=== PATIENT | female | born 1985 | race African-American/Black ===

== ENCOUNTER 2021-09-24 09:23 | Outpatient (CLI) | payer BC, SELFPAY ==
[2021-09-24 10:14] LABS: Basophils Percent Auto 0.4 % (0.2-1.2); Eosinophils Absolute Auto 0.1 K/mm3 (0-0.3); Eosinophils Percent Auto 1.3 % (0-4.4); Hematocrit 34.3 % (37.0-47.0); Hemoglobin 11.1 g/dL (12.0-15.0); Immature Granulocyte Absolute 0.02 K/mm3 (0.00-0.031); Immature Granulocyte Percent A 0.4 % (0-0.5); Lymphocytes Absolute Auto 1.49 K/mm3 (0.9-3.2); Lymphocytes Percent Auto 27.8 % (18.3-44.2); Mean Corpuscular HGB Conc 32.4 g/dl (32-36); Mean Corpuscular Hemoglobin 26.5 pg (26-34); Mean Corpuscular Volume 81.9 fl (80-100); Mean Platelet Volume 10.9 fl (7.4-10.4); Monocytes Absolute Auto 0.3 K/mm3 (0.1-0.6); Monocytes Percent Auto 5.6 % (2.6-8.5); Neutrophils Absolute Auto 3.5 K/mm3 (1.3-6.7); Neutrophils Percent Auto 64.5 % (45.5-73.1); Platelet Count Result 264 k/mm3 (150-375); Red Blood Count 4.19 M/mm3 (4.2-5.4); Red Cell Distribution Width 15.3 % (11.5-14.5); White Blood Count 5.4 K/mm3 (4.5-10.0)
[2021-09-24 10:57] LABS: Hepatitis B Surface Antigen Negative (Negative); Rubella IgG Antibody 20.8 IU/ML
[2021-09-24 11:04] LABS: HIV 1/2 Ab P24 Ag Result Negative (Negative)
[2021-09-24 11:30] LABS: Glucose 1 Hour PP 50gm Dose 138 mg/dL
[2021-09-25 09:05] LABS: Rapid Plasma Reagin Non-Reactive (NonReactive)
[2021-09-26 14:34] LABS: CMV IgG Antibody >10.00 U/mL (<0.60)
== END 2021-09-24 09:24 | disposition home or self-care (01) ==
PROVIDERS: Visit Provider Obstetrics & Gynecology
DX: N94.89 Other specified conditions associated with female genital organs and menstrual cycle (principal)
CPT/HCPCS: 36415; 82947; 84702; 85025; 86592; 86644; 86703; 86747; 86762; 86787; 86850; 87086; 87088; 87340; G0432

== ENCOUNTER 2021-10-03 07:22 | Outpatient (CLI) | payer BC, SELFPAY ==
[2021-10-03 08:21] LABS: Glucose Fasting Gestational 83 mg/dL (>/=95)
[2021-10-03 10:03] LABS: Glucose 1 Hour Gest 134 mg/dL (>/=180)
[2021-10-03 10:55] LABS: Glucose 2 Hour Gest 101 mg/dL (>/= 155)
[2021-10-03 12:20] LABS: Glucose 3 Hour Gest 98 mg/dL (>/=140)
== END 2021-10-03 07:23 | disposition home or self-care (01) ==
LOC: ANHLAB 07:23
PROVIDERS: Visit Provider Obstetrics & Gynecology
DX: O99.810 Abnormal glucose complicating pregnancy (principal); Z3A.00 Weeks of gestation of pregnancy not specified
CPT/HCPCS: 36415; 82951; 82952

== ENCOUNTER 2021-12-03 09:02 | Outpatient (CLI) | payer BC, SELFPAY | END 2021-12-03 09:03 | disposition home or self-care (01) | LOC: ANHLAB 09:04 | PROVIDERS: Visit Provider Obstetrics & Gynecology | DX: N94.89 Other specified conditions associated with female genital organs and menstrual cycle (principal) | CPT/HCPCS: 36415; 86900; 86901 ==

== ENCOUNTER 2022-02-06 13:10 | Outpatient (CLI) | payer BC, SELFPAY ==
[2022-02-06 15:09] LABS: Hematocrit 26.5 % (37.0-47.0); Hemoglobin 8.6 g/dL (12.0-15.0); Mean Corpuscular HGB Conc 32.5 g/dl (32-36); Mean Corpuscular Volume 80.1 fl (80-100); Mean Platelet Volume 9.9 fl (7.4-10.4); Platelet Count Result 220 k/mm3 (150-375); Red Blood Count 3.31 M/mm3 (4.2-5.4); Red Cell Distribution Width 14.6 % (11.5-14.5); White Blood Count 8.8 K/mm3 (4.5-10.0)
[2022-02-06 15:25] LABS: Glucose 1 Hour PP 50gm Dose 132 mg/dL
[2022-02-06 16:03] LABS: HIV 1/2 Ab P24 Ag Result Negative (Negative)
== END 2022-02-06 13:11 | disposition home or self-care (01) ==
LOC: ANHLAB 13:12
PROVIDERS: Visit Provider Student in an Organized Health Care Education/Training Program
DX: N94.89 Other specified conditions associated with female genital organs and menstrual cycle (principal)
CPT/HCPCS: 36415; 82947; 85027; 86703; G0432

== ENCOUNTER 2022-02-14 07:24 | Outpatient (CLI) | payer BC, SELFPAY ==
[2022-02-14 07:58] LABS: Glucose Fasting Gestational 94 mg/dL (>/=95)
[2022-02-14 09:55] LABS: Glucose 1 Hour Gest 131 mg/dL (>/=180)
[2022-02-14 10:45] LABS: Glucose 2 Hour Gest 108 mg/dL (>/= 155)
[2022-02-14 11:36] LABS: Glucose 3 Hour Gest 81 mg/dL (>/=140)
== END 2022-02-14 07:25 | disposition home or self-care (01) ==
LOC: ANHLAB 07:25
PROVIDERS: Visit Provider Student in an Organized Health Care Education/Training Program
DX: R73.09 Other abnormal glucose (principal)
CPT/HCPCS: 36415; 82951; 82952

== ENCOUNTER 2022-04-24 05:03 | Inpatient (IN) | payer BC, SELFPAY ==
[2022-04-24] VITALS (73 sets, daily range): BP systolic 92–137; BP diastolic 61–117; PULSE 64–101; RESP 16–19; TEMP 36.4–37.3; O2SAT 97–100; BMI 36.5
[2022-04-24 05:35] LABS: Basophils Percent Auto 0.3 % (0.2-1.2); Eosinophils Absolute Auto 0.1 K/mm3 (0-0.3); Eosinophils Percent Auto 1.1 % (0-4.4); Hematocrit 31.2 % (37.0-47.0); Hemoglobin 10.3 g/dL (12.0-15.0); Immature Granulocyte Absolute 0.02 K/mm3 (0.00-0.031); Immature Granulocyte Percent A 0.3 % (0-0.5); Lymphocytes Absolute Auto 1.76 K/mm3 (0.9-3.2); Lymphocytes Percent Auto 23.5 % (18.3-44.2); Mean Corpuscular Hemoglobin 25.4 pg (26-34); Mean Platelet Volume 10.3 fl (7.4-10.4); Monocytes Absolute Auto 0.5 K/mm3 (0.1-0.6); Monocytes Percent Auto 6.4 % (2.6-8.5); Neutrophils Absolute Auto 5.1 K/mm3 (1.3-6.7); Neutrophils Percent Auto 68.4 % (45.5-73.1); Platelet Count Result 212 k/mm3 (150-375); Red Blood Count 4.05 M/mm3 (4.2-5.4); Red Cell Distribution Width 17.5 % (11.5-14.5); White Blood Count 7.5 K/mm3 (4.5-10.0)
--- NOTE | 2022-04-24 05:35 | LDADM ---
This patient, Betsy Flaherty, was admitted to Labor/Delivery/Recovery 120 on 04/24/22 at 05:03. Plans for labor, pain management and were discussed with patient. Patient/family oriented to hospital policies and general routines including ID bracelet, bed and alarms, visiting hours, pain management, procedures, bathroom and other care routines, personal items, smoking policy, room service/diet and guest tray routines, infant security routines, and visiting hours. Patient/Family are encouraged to report perceived risks to care and to ask questions if they do not understand what they are told or what they should do. See OBIX for further documentation.
[2022-04-24] MEDS: LACTATED RINGERS 1,000 ML 125 ML IV CONT ×2 (07:02→07:45)
--- NOTE | 2022-04-24 07:12 | WPDANESEPPF ---
Anes - Initial Pre Proc Eval Procedure: Operation Date: 04/24/22 07:30 Proposed Procedures p Repeat Section with Bilateral Tubal Ligation - Tyrone Bernstein MD Date/Time: 04/24/22 07:12 Surgeon: Tyrone Bernstein MD Pre Op Diagnosis: R c/s Patient Data Age: 37 Gender: F Height: 1.65 m Weight: 99.5 kg Last Vital Signs Pulse 93 04/24/22 05:46 BP 114/83 04/24/22 05:46 O2 Del Method Room Air 04/24/22 05:34 Allergies Allergy/AdvReac Type Severity Reaction Status Date / Time ampicillin Allergy Mild Unknown Verified 04/18/22 09:24 Penicillins Allergy Mild Unknown Verified 04/18/22 09:24 Phenothiazines AdvReac Severe Anaphylactic Verified 04/18/22 09:24 Shock Home Medications Medication Instructions Recorded Confirmed Type acetaminophen 500 mg tablet 500 mg PO Q6H PRN Pain, Mild 10/30/21 04/24/22 History (Tylenol Extra Strength) aspirin 81 mg tablet,delayed 81 mg PO DAILY 10/30/21 04/24/22 History release (Adult Low Dose Aspirin) vitamins-iron fumarate 65 1 tablet PO DAILY 10/30/21 04/24/22 History mg iron-folic acid 1 mg tablet docusate sodium 100 mg capsule 100 mg PO DAILY #30 caps 02/11/22 04/24/22 Rx (Colace) ferrous sulfate 325 mg (65 mg 325 mg PO BID #60 tabs 02/11/22 04/24/22 Rx iron) tablet (FeroSul) Laboratory Tests 04/24/22 04/24/22 04/24/22 05:26 05:26 05:26 WBC 7.5 K/mm3 K/mm3 (4.5-10.0) RBC 4.05 M/mm3 L M/mm3 (4.2-5.4) Hgb 10.3 g/dL L g/dL (12.0-15.0) Hct 31.2 % L % (37.0-47.0) MCV 77.0 fl L fl (80-100) MCH 25.4 pg L pg (26-34) MCHC 33.0 g/dl g/dl (32-36) RDW 17.5 % H % (11.5-14.5) Plt Count 212 k/mm3 k/mm3 (150-375) MPV 10.3 fl fl (7.4-10.4) Immature Gran % (Auto) 0.3 % % (0-0.5) Neut % (Auto) 68.4 % % (45.5-73.1) Lymph % (Auto) 23.5 % % (18.3-44.2) [place] % (Auto) 6.4 % % (2.6-8.5) Eos % (Auto) 1.1 % % (0-4.4) Baso % (Auto) 0.3 % % (0.2-1.2) Lymph # (Auto) 1.76 K/mm3 K/mm3 (0.9-3.2) [place] # (Auto) 0.5 K/mm3 K/mm3 (0.1-0.6) Eos # (Auto) 0.1 K/mm3 K/mm3 (0-0.3) Baso # (Auto) 0.0 K/mm3 K/mm3 (0.0-0.1) Abs Immat Gran (auto) 0.02 K/mm3 K/mm3 (0.00-0.031) Absolute Neuts (auto) 5.1 K/mm3 K/mm3 (1.3-6.7) Absolute Nucleated RBC 0.0 K/mm3 K/mm3 (0.0-0.012) Nucleated RBC % 0.0 % % (0.0-0.2) RPR Pending Blood Type A Positive Antibody Screen Pending Patient hx anesthesia problems: none Family hx anesthesia problems: none Results Review: All pre-operative results and documents have been reviewed as part of the pre-operative evaluation. [facility] Past Medical History Medical History Abnormal glucose tolerance in Blood glucose abnormal Suppression of menstruation Surgical History Surgical History Delivery by section (10/10/04) primary c/s unfavorable cervix, nonreassuring status Delivery by section (11/04/05) rpt c/s History of gynecological procedure (01/04/06) iud insertion History of hysteroscopy (05/08/16) Hscope removal of Foreign body retained IUD History of hysteroscopy (11/20/10) hysteroscopic intrauterine device removal , insertion of mirena IUD Social History Social History Smoking status: Never smoker Second hand tobacco smoke exposure: No Alcohol intake: never Substance use: never Substance use type: does not use Lack of Transportation: No Lack of Food: Never True Current Housing: I Have Housing Concerned About Future Housing: No Difficulty Paying Gas/Electric Bills: No Di
--- NOTE | 2022-04-24 07:29 | WPDHPUPDATE1 ---
History and Physical Update Update Date/Time: 04/24/22 07:29 History and Physical has been reviewed, including an updated exam of the patient. There are NO changes in the patient's condition. Risks, benefits, and alternatives have been discussed and questions answered. Patient agrees to proceed with procedure.
[2022-04-24] MEDS: ceFAZolin 2 GM/D5W 50 ML 2 GM/50 ML BAG IVPB (07:48)
--- NOTE | 2022-04-24 09:16 | PM.OBPRVD ---
OB - Delivery Note Procedure Procedure: Procedures Operation Date: 04/24/22 07:30 <No data on this case meets the specified criteria> Events: Previous Delivery Delivery monitor: External FHT and External Uterine Route of delivery: Specimen: Yes (Tubes x2) Quantitative Blood Loss (ml): 855 Anesthesia type: Spinal Disposition: Floor Complications: None Narrative: Patient prepped draped usual manner for this procedure. Prior scar was removed on entry into the abdominal cavity. Fascia was extended bilaterally the length of the skin incision and superiorly and inferiorly dissected away from the rectus muscles. Peritoneum was entered without difficulty and bladder flap was developed. Uterus was scored with light meconium-stained fluid noted vertex was delivered followed by the rest the baby without difficulty. Cord clamped cut and the placenta was manually removed. Uterus was exteriorized and cleared of membranes and clots and closed using 0 Monocryl in a running interlocking manner with good approximation and hemostasis noted. Bilaterally the fallopian tube was then grasped with Buford clamps and segments were removed by doubly tying mesial salpinx and removing the section of tube. The stumps were hemostatic and the uterus was turned to the abdomen. Stumps were again noted to be hemostatic and intact and the fascia was approximated using 0 Vicryl from the left angle to the midline and the right angle to midline with good approximation hemostasis noted. Subcutaneous tissue was approximated 0 plain suture and rina were used to approximate the skin edges. Patient tolerated the procedure well and was sent to recovery room in stable condition. Baby Weeks of gestation at delivery: 39 gender: Female Weight (pounds): 8 Weight (ounces): 1 presentation: vertex Placenta delivery description: Manual Removal Cord Vessel Description: 3 Vessels score one minute: 9 score five minutes: 9 AMG Delivery Billing Delivery Delivery: Delivery Charge
[2022-04-24] MEDS: MORPHINE SULFATE INJ (*CRX) 10 MG/ML AMP 3 MG IV PUSH (10:05)
[2022-04-24] MEDS: LIDOCAINE 5% PATCH 1 PATCH TRANSDERM (10:06)
[2022-04-24] MEDS: OXYTOCIN 30 UNITS/NS 500 ML 30 UNITS/500 ML BAG 125 UNITS IV CONT (11:15)
[2022-04-24] MEDS: HYDROcodone/acetaminophen (*CRX) 5-325 MG TABLET 1 TAB PO ×2 (11:51→16:42)
[2022-04-24] MEDS: IBUPROFEN 600 MG TABLET PO (11:51)
--- NOTE | 2022-04-24 12:21 | PC.NURSE ---
1128-Patient transferred to post room #285 via stretcher. Support person present. Oriented to unit, room, information board, rooming in, admission packet and security measures. Patient verbalizes understanding.
--- NOTE | 2022-04-24 14:04 | PC.NURSE ---
[id number] Introductions were made, then consulted with patient to assess needs related to . Mother led the conversation with her?plans to feed?her infant and the?experience so far. Mother states this will be the first baby she breast feeds. Mother states she prefers to breastfeed, however; is unsure since she hasn't done it before. Resources provided for inpatient and outpatient services with the feeding sheet, mom/baby guide, business card and name written on the white board. Mother was encouraged to place skin to skin and stimulate with massage touch when infant returns to her. Reviewed what to expect the 1st 24 hours and how we assess needs of infant requiring supplementation. Mother voiced understanding of information and will call if there is a request for assistance. Reported to the primary RN.
--- NOTE | 2022-04-24 15:28 | PC.NURSE ---
[id number] Consulted with patient to assess needs related to . is skin to skin and mother is attempting to latch . Mother works well with her infant. Reviewed working with infant, supporting breast and how to protect the nipples with an optimal deep latch, good positioning, and good hand washing. Encouraged understanding the benefits of skin to skin, responding to feeding cues, frequencies of feeding 8-12 times in 24 hours (approximately 2-3 hours), hand expression, duration of feedings, milk production, intake/output feeding sheet and signs of adequate intake encouraging swallowing at the breast. Reviewed positioning and alignment, supporting breast, off-centered (asymmetrical latch) and leading with the chin with big, open, wide gape. Infant latched optimally to the right breast in football position for 5 minutes. Education given to mother of how to visualize suck/swallow ratios and listen for drinking at the breast while latched effectively breast feeding. Mother adjusted her support hand and changed the position of her arms and became unlatched. Infant was placed upright skin to skin with mother and burped. started demonstrating seeking the breast with feeding cues and mother assisted to the breast with RN helping to the left breast using cross cradle laid-back positioning. was able to maintain latch without discomfort to mother. Education given to mother of how to visualize suck/swallow ratios, listen for drinking at the breast and swallowing was visualized. Nipple care reviewed with optimal latch, good positioning and using clean hands when feeding her and touching her breast. Reviewed what to expect the 1st 24 hours of life. Resources used to facilitate learning were used from the visual handout, tool, mom and baby guide. Reviewed early feeding cues and the importance of skin to skin. Mother voiced understanding of the education shared, to call for assistance if the infant does not latch or if there is discomfort with . Reported to the primary RN.
[2022-04-24 15:56] LABS: Rapid Plasma Reagin Non-Reactive (NonReactive)
[2022-04-24] MEDS: DEXTROSE 5%/0.45% SOD CHL 1,000 ML 125 ML IV CONT (16:42)
[2022-04-24] MEDS: DOCUSATE SODIUM 100 MG CAPSULE PO (16:42)
[2022-04-25] VITALS (13 sets, daily range): BP systolic 91–125; BP diastolic 55–84; PULSE 56–100; RESP 16–18; TEMP 36.3–37; O2SAT 97–100
[2022-04-25] MEDS: IBUPROFEN 600 MG TABLET PO ×3 (03:24→20:00)
[2022-04-25] MEDS: HYDROcodone/acetaminophen (*CRX) 5-325 MG TABLET 1 TAB PO ×3 (03:24→20:01)
[2022-04-25 07:37] LABS: Basophils Percent Auto 0.2 % (0.2-1.2); Eosinophils Absolute Auto 0.1 K/mm3 (0-0.3); Eosinophils Percent Auto 0.6 % (0-4.4); Immature Granulocyte Absolute 0.04 K/mm3 (0.00-0.031); Immature Granulocyte Percent A 0.4 % (0-0.5); Lymphocytes Absolute Auto 1.99 K/mm3 (0.9-3.2); Lymphocytes Percent Auto 20.6 % (18.3-44.2); Mean Corpuscular HGB Conc 32.5 g/dl (32-36); Mean Corpuscular Hemoglobin 26.2 pg (26-34); Mean Corpuscular Volume 80.5 fl (80-100); Mean Platelet Volume 10.2 fl (7.4-10.4); Monocytes Absolute Auto 0.6 K/mm3 (0.1-0.6); Monocytes Percent Auto 6.1 % (2.6-8.5); Neutrophils Percent Auto 72.1 % (45.5-73.1); Platelet Count Result 193 k/mm3 (150-375); Red Blood Count 2.56 M/mm3 (4.2-5.4); Red Cell Distribution Width 17.7 % (11.5-14.5); White Blood Count 9.7 K/mm3 (4.5-10.0)
[2022-04-25 07:39] LABS: Hematocrit 20.6 % (37.0-47.0)
[2022-04-25 07:40] LABS: Hemoglobin 6.7 g/dL (12.0-15.0)
[2022-04-25] MEDS: POLYSACCHARIDE IRON COMPLEX 150 MG CAPSULE PO ×2 (08:05→19:59)
[2022-04-25] MEDS: MULTIVIT/MIN/PREN/FOL AC/IRON TABLET 1 TAB PO (08:05)
[2022-04-25] MEDS: DOCUSATE SODIUM 100 MG CAPSULE PO ×2 (08:05→20:00)
[2022-04-25] MEDS: SIMETHICONE 80 MG TAB.CHEW PO ×2 (09:48→20:00)
[2022-04-25] MEDS: SODIUM CHLORIDE 0.9% IV 250 ML 30 ML IV CONT (10:46)
--- NOTE | 2022-04-25 12:26 | P.PNOB_ITS ---
OB - PN: Subj Subjective Date/time seen: 04/25/22 12:26 Interval history: 37-year-old female who is postop day 1 from . Patient is doing well. She reports some pain. She has been up to ambulate once to the restroom. Patient was noted to be anemic. Patient required 2 units blood transfusion today. Patient denies any near-syncope, fatigue, palpitations. Overall patient doing well today with no complaints. Patient comments: no complaints [place] baby status: doing well OB - PN: Obj Data Labs 04/25/22 07:26 Labs: Laboratory Results - last 24 hr 04/24/22 04/24/22 04/25/22 05:26 05:26 07:26 WBC 9.7 RBC 2.56 L Hgb 6.7 L* D Hct 20.6 L* MCV 80.5 MCH 26.2 MCHC 32.5 RDW 17.7 H Plt Count 193 MPV 10.2 Immature Gran % (Auto) 0.4 Neut % (Auto) 72.1 Lymph % (Auto) 20.6 [place] % (Auto) 6.1 Eos % (Auto) 0.6 Baso % (Auto) 0.2 Lymph # (Auto) 1.99 [place] # (Auto) 0.6 Eos # (Auto) 0.1 Baso # (Auto) 0.0 Abs Immat Gran (auto) 0.04 H Absolute Neuts (auto) 7.0 H Absolute Nucleated RBC 0.0 Nucleated RBC % 0.0 RPR Non-reactive Blood Type A Positive Antibody Screen Negative Crossmatch See Detail OB - PN A/P Plan day: 1 Plan: routine care Comments: patient doing well H/H 6.7/20. Patient receiving 2 units pack red blood cells. Patient asymp tomatic. Will repeat CBC in the morning afebrile, VSS incision C/D/I gleason removed, voiding spontaneously continue routine post op care Time Spent With Patient Time: Total time spent is greater than 50% in coordination of care (as documented) at patient's floor/unit and/or counseling patient: Time with patient: less than 15 minutes Review of Systems Constitutional: Constitutional: Reports no additional constitutional complaints Cardiovascular: Cardiovascular: Reports no additional cardiovascular complaints Respiratory: Respiratory: Reports no additional respiratory complaints Gastrointestinal: Gastrointestinal: Reports no additional gastrointestinal complaints Genitourinary: Genitourinary: Reports no additional female genitourinary complaints Exam Const: General: comfortable and no acute distress Resp: Effort & Inspection: normal respiratory effort Auscultation: clear to auscultation bilaterally Cardio: Rate: regular rate GI: GI Palp: Yes Soft to palpation, Yes Tenderness to palpation present (GI) (around incision ) and No Guarding due to palpation present (GI) A uscultation: normal bowel sounds Other: incision C/D/I, covered with Dermabond Psych: Appearance: grossly normal Mental Status: mental status grossly normal Affect: normal affect
--- NOTE | 2022-04-25 12:54 | PC.NURSE ---
[phone] Consulted with patient to assess needs related to . Mother led conversation with her experience with feeding baby so far. Mother works well with her infant with encouragement. Reviewed working with , supporting breast and how to protect the nipples with an optimal deep latch, good positioning, and good hand washing. Encouraged understanding the benefits of skin to skin, responding to feeding cues, frequencies of feeding 8-12 times in 24 hours (approximately 2-3 hours), duration of feedings, milk production, intake/output feeding sheet and signs of adequate intake encouraging swallowing at the breast. Reviewed positioning and alignment, supporting breast, off-centered (asymmetrical latch) and leading with the chin with big, open, wide gape. Infant latched optimally to the right breast in football position after a few shallow latches as evidenced by misshaped nipple and piston sucking. Education given to mother of how to visualize suck/swallow ratios and listen for drinking at the breast. was able to maintain latch without discomfort to mother. Nipple care reviewed with optimal latch, good positioning and using clean hands when feeding her and touching her breast. Mother voiced understanding of skin to skin, stimulating with massage touch, responsive feedings, talking to infant to encourage if it has been 2 -2.5 hours since the start of the last , to call if infant does not latch, or if there is discomfort with . Resources provided for inpatient/outpatient with business card, feeding sheet and the mom/baby guide. Mother voiced understanding of information, demonstrated learning and will call if there is a request for assistance. Reported to the primary RN.
--- NOTE | 2022-04-25 13:47 | WPDANLDPN2 ---
Anes-Prog Note L&D Date/Time: 04/25/22 13:47 Comfortable throughout: section Neuraxial method: spinal Epidural/Spinal procedure site: clean & non-tender Neuro status: Neuro function grossly intact. Cardiovascular status: other (anemia) Respiratory status: normal Airway patency: baseline Mental status: baseline Post-Op hydration status: normal Vital Signs: Last Vital Signs Temp 98.2 F 04/25/22 12:43 Pulse 98 04/25/22 12:43 Resp 16 04/25/22 12:43 BP 104/69 04/25/22 12:43 Pulse Ox 99 04/25/22 12:43 O2 Del Method Room Air 04/25/22 08:00 Pain score (VAS): 0/10 I/O: Intake & Output 04/24/22 04/25/22 04/25/22 23:59 07:59 15:59 Intake Total 2020 1000 640 Output Total 400 900 450 Balance 1620 100 190 Post-procedural complaints: none Patient feedback: Patient satisfied with anesthetic care.
--- NOTE | 2022-04-25 13:48 | WPDANLDNPN2 ---
Anes-Prog Note L&D-Neuraxial Date/Time: 04/25/22 13:48 Neuraxial medications: intrathecal PF morphine Opiod-related complaints: none Patient feedback: Patient satisfied with post-operative pain management.
[2022-04-26] MEDS: HYDROcodone/acetaminophen (*CRX) 5-325 MG TABLET 1 TAB PO ×3 (04:13→13:29)
[2022-04-26] MEDS: SIMETHICONE 80 MG TAB.CHEW PO ×2 (04:13→09:19)
[2022-04-26] MEDS: IBUPROFEN 600 MG TABLET PO ×2 (04:13→13:29)
[2022-04-26 05:52] LABS: Basophils Percent Auto 0.4 % (0.2-1.2); Eosinophils Absolute Auto 0.1 K/mm3 (0-0.3); Hematocrit 25.9 % (37.0-47.0); Hemoglobin 8.4 g/dL (12.0-15.0); Immature Granulocyte Absolute 0.04 K/mm3 (0.00-0.031); Immature Granulocyte Percent A 0.4 % (0-0.5); Lymphocytes Absolute Auto 1.89 K/mm3 (0.9-3.2); Lymphocytes Percent Auto 19.6 % (18.3-44.2); Mean Corpuscular HGB Conc 32.4 g/dl (32-36); Mean Corpuscular Volume 80.2 fl (80-100); Mean Platelet Volume 10.7 fl (7.4-10.4); Monocytes Absolute Auto 0.5 K/mm3 (0.1-0.6); Monocytes Percent Auto 5.6 % (2.6-8.5); Platelet Count Result 204 k/mm3 (150-375); Red Blood Count 3.23 M/mm3 (4.2-5.4); White Blood Count 9.6 K/mm3 (4.5-10.0)
--- NOTE | 2022-04-26 08:57 | P.PNOB_ITS ---
OB - PN: Subj Subjective Date/time seen: 04/26/22 08:40 Interval history: 37-year-old female who is postop day 2 from . Patient is doing well. She reports some pain. She has been up to ambulate repeatedly without dizziness. s/p 2 units blood transfusion yesterday. Patient denies any near- syncope, fatigue, palpitations. Overall patient doing well today with no complaints. She desires to breastfeed the infant but has been formula feeding. Patient comments: pain well controlled and incisional pain [place] baby status: doing well and bottle feeding well feeding status: breast and bottle feeding OB - PN: Obj Data Labs 04/26/22 04:22 Labs: Laboratory Results - last 24 hr 04/24/22 04/26/22 05:26 04:22 WBC 9.6 RBC 3.23 L Hgb 8.4 L Hct 25.9 L MCV 80.2 MCH 26.0 MCHC 32.4 RDW 17.0 H Plt Count 204 MPV 10.7 H Immature Gran % (Auto) 0.4 Neut % (Auto) 73.0 Lymph % (Auto) 19.6 [place] % (Auto) 5.6 Eos % (Auto) 1.0 Baso % (Auto) 0.4 Lymph # (Auto) 1.89 [place] # (Auto) 0.5 Eos # (Auto) 0.1 Baso # (Auto) 0.0 Abs Immat Gran (auto) 0.04 H Absolute Neuts (auto) 7.0 H Absolute Nucleated RBC 0.0 Nucleated RBC % 0.0 Blood Type A Positive Antibody Screen Negative Crossmatch See Detail OB - PN A/P Assessment and Plan (1) Postoperative abdominal pain: Code(s): R10.9 - Unspecified abdominal pain; G89.18 - Other acute postprocedural pain Status: Acute Plan day: 2 Plan: routine care Time Spent With Patient Time: Total time spent is greater than 50% in coordination of care (as documented) at patient's floor/unit and/or counseling patient: Review of Systems Review of Systems: All systems reviewed & are unremarkable except as noted in HPI and below Exam Const: General: cooperative, no acute distress and awake José Antonio entation/consciousness: patient oriented x3 Limitations: no limitations Resp: Effort & Inspection: normal respiratory effort and able to speak in complete sentences Auscultation: clear to auscultation bilaterally Cardio: Rate: regular rate Peripheral pulses: Peripheral pulses 2+ throughout GI: Inspection: normal to inspection Auscultation: normal bowel sounds : General: Yes bladder normal to palpation Bimanual exam- vagina & uterus: bladder normal to palpation Other: Fundus firm Skin: General skin exam: normal color Other: Incision covered with dressing. Neuro: General: patient oriented x3 Cognition (Neuro): normal cognition Speech: normal speech Extrem: General: normal to inspection Right lower extremity: edema Details: pitting and 1+ Left lower extremity: edema Details: pitting and 1+ Psych: Appearance: grossly normal Mental Status: mental status grossly normal Speech and movement: Normal speech and movement present Affect: normal affect Attitude: cooperative Thought process: Normal thought process present
[2022-04-26 09:19] VITALS: BP 120/81; PULSE 99; RESP 18; TEMP 36.8; O2SAT 99
[2022-04-26] MEDS: MULTIVIT/MIN/PREN/FOL AC/IRON TABLET 1 TAB PO (09:19)
[2022-04-26] MEDS: DOCUSATE SODIUM 100 MG CAPSULE PO ×2 (09:19→16:17)
[2022-04-26] MEDS: POLYSACCHARIDE IRON COMPLEX 150 MG CAPSULE PO ×2 (09:19→16:17)
[2022-04-26] MEDS: LANOLIN (LANSINOH) 7.5 GM CREAM 1 APPLIC TOPICAL (09:20)
[2022-04-26 20:30] VITALS: BP 130/86; PULSE 86; RESP 16; TEMP 36.9; O2SAT 99
[2022-04-27] MEDS: HYDROcodone/acetaminophen (*CRX) 5-325 MG TABLET 1 TAB PO ×3 (00:25→17:08)
[2022-04-27] MEDS: IBUPROFEN 600 MG TABLET PO ×2 (00:25→08:19)
[2022-04-27 08:10] VITALS: BP 115/73; PULSE 79; RESP 18; TEMP 36.5
[2022-04-27] MEDS: TETANUS,DIPHTHERIA,AC PERTUSSIS ADULT (0.5 ML) BOOSTRIX IM (08:17)
[2022-04-27] MEDS: SIMETHICONE 80 MG TAB.CHEW PO (08:19)
[2022-04-27] MEDS: POLYSACCHARIDE IRON COMPLEX 150 MG CAPSULE PO ×2 (08:20→17:08)
[2022-04-27] MEDS: MULTIVIT/MIN/PREN/FOL AC/IRON TABLET 1 TAB PO (08:21)
[2022-04-27] MEDS: DOCUSATE SODIUM 100 MG CAPSULE PO ×2 (08:21→17:08)
--- NOTE | 2022-04-27 08:37 | PM.OBPNVD ---
OB - PN: Subj Subjective Date/time seen: 04/27/22 08:37 Interval history: i Patient comments: no complaints, pain well controlled and other (ambulating without dizziness) baby status: doing well OB - PN: Obj Data Labs 04/26/22 04:22 OB - PN A/P Plan day: 3 Plan: routine care and discharge home Time Spent With Patient Time: Total time spent is greater than 50% in coordination of care (as documented) at patient's floor/unit and/or counseling patient: Exam Narrative: inc c/d/i : Bimanual exam- vagina & uterus: other (Uterus firm, nt @U)
[2022-04-27] MEDS: LIDOCAINE 5% PATCH 1 PATCH TRANSDERM (10:52)
--- NOTE | 2022-05-01 11:09 | PM.OBDSVD ---
DS: Admitting Diagnosis Discharge Date 04/27/22 Admitting Diagnosis Term DS: Discharge Diagnosis Discharge Diagnosis (1) Term delivered: Code(s): O80 - Encounter for full-term uncomplicated delivery Status: Acute OB - DS: Summary OB Procedures : None OB Procedures Intrapartum: and Tubal ligation OB Procedures: : None Peripartum Data Procedures: Procedures Operation Date: 04/24/22 07:30 Actual Procedure Side Surgeon p Repeat Section with Bilateral Tubal Ligation Not Applicable Tyrone Bernstein MD Time Spent with Patient Time attestation: Total time spent providing and/or coordinating discharge services: DS: Data Data Completed and Pending Completed studies during hospitalization: Pending at discharge 04/24/22 08:39 Surgical [PTH] Routine Discharge Plan Discharge Attending physician on discharge: Tyrone Bernstein Consulting providers: [place] ; Richelle Olvera ; Katt Forde ; Fausto Perera ; Paulo Alonzo Discharging Clinician: Richelle Olvera Anticipated Discharge Date/Time: 04/27/22 08:38 Patient Disposition: Home, Self-Care Activity: may shower, may drive after 2 weeks and pelvic rest Diet: regular Wound Care Instructions: incision open to air Discharge Instructions: Education: Mom and Baby Guide Given to: Mother Follow-Up: Call your delivering provider's office for an appointment to be seen in: Call office Mom and baby should come to the [facility] for the follow-up appointment. Appointment Date/Time: April 29, 2022 at 10:00 am What to expect at your follow-up visit: Physical Assessment Call [phone] if you are unable to keep your appointment time. BREAST CARE: * Wear a snug supportive bra. * For engorgement discomfort: Breast Feeding: * Apply warm moist washcloths * Express milk as needed to relieve engorgement * Wear loose clothing * For sore nipples: * Identify correct latch-on * Apply warm moist washcloths before and after nursing * Air dry nipples after nursing * May apply Lansinoh cream to nipples ABDOMINAL INCISION: * Allow incision to air dry * Do NOT use lotions for powders on your incision * When showering, allow soap and water to run over the incision, but do not wash incision PERINEAL CARE: * Until bleeding stops, use your ashley bottle after urinating * Change your pad frequently throughout the day * No tub baths until seen by your physician - You may shower ACTIVITY: * Rest as much as possible. * Do not exercise or lift anything heavier than your baby (such as laundry or other children.) * Avoid stairs or driving as much as possible. * Do not put anything into the vagina. No douching, tampons, or sexual activity until seen by physician. NOTIFY PHYSICIAN IF YOU HAVE ANY QUESTIONS OR IF ANY OF THE FOLLOWING SYMPTOMS OCCUR: * If your incision becomes red, swollen, or more painful than what you have experienced in the hospital. * If your vaginal bleeding becomes foul smelling. * If your vaginal bleeding becomes more heavy than a period or if your bleeding changes from pink to bright red. However, you may pass an occasional walnut-sized clot once or twice for the first week . * If you experience a sharp, shooting pain in you calves. * If you discover a hard, reddened area on your breast or if you experience flu-like symptoms. DIET: * Eat regular, well-balanced meals. * Drink plenty of fluids daily. If , drink to thirst. Stand Alone Forms: General Discharge Information Follow-up/Referrals: Tyrone Bernstein MD [Physician] - Call for Appointment Discharge Medications: New hydrocodone-acetaminophen 5-325 mg tablet 1 tablet PO Q4H PRN (Reason: pain) Qty: 20 0RF Continued vit-iron fum-folic ac 65 mg iron- 1 mg tablet 1
== END 2022-04-27 17:30 | disposition home or self-care (01) | DRG 785 ==
LOC: ANHLDR 05:07 → ANHOB2 11:32
PROVIDERS: Obstetrics & Gynecology Gynecology; Admitting Provider Obstetrics & Gynecology; Visit Provider Obstetrics & Gynecology
PROC: 10D00Z1 Extraction of Products of Conception, Low, Open Approach (ICD-10-PCS; CPT 59514; principal; 2022-04-24 07:30)
DX: O34.219 Maternal care for unspecified type scar from previous cesarean delivery (principal); O77.0 Labor and delivery complicated by meconium in amniotic fluid; Z30.2 Encounter for sterilization; Z3A.39 39 weeks gestation of pregnancy; Z37.0 Single live birth
CPT/HCPCS: 36415; 36430; 85025; 86592; 86850; 86900; 86901; 86923; 88302; 90715; A9270; J0131; J0690; J1100; J1200; J2270; J2274; J2370; J2405; J2590; J2704; J3010; J7050; J7120; P9016

== ENCOUNTER 2023-02-21 09:56 | Emergency (ER) | payer BC, SELFPAY ==
--- NOTE | ~2023-02-21 | XR_ITS ---
EXAMINATION: XR ankle LT min 3V DATE: 02/21/2023 10:28 INDICATION: Left ankle pain TECHNIQUE: Anteroposterior, lateral, mortise, and additional oblique view of the ankle were obtained. COMPARISON: None. FINDINGS: There is medial soft tissue swelling of the ankle. Mild cortical irregularity at the supero medial margin of the navicular has a chronic appearance. Bone alignment is normal. No definite acute fracture is identified. A posterior calcaneal enthesophyte is noted. IMPRESSION: 1. Medial ankle soft tissue swelling without definite acute osseous abnormality identified. Reviewed, dictated and finalized at location [facility]. [employer]
[2023-02-21 10:14] VITALS: BP 123/81; PULSE 90; RESP 16; TEMP 36.3; O2SAT 100
--- NOTE | 2023-02-21 10:42 | ED.LOWEXIN ---
HPI - Extremity Injury (Lower) General Chief Complaint: Extremity Injury, Lower Stated Complaint: left ankle pain Time Seen by Provider: 02/21/23 10:42 Source: patient Mode of arrival: ambulatory Limitations: no limitations History of Present Illness HPI Narrative: 38 y/o female presented for c/o left foot and ankle pain after injury last night. States she was walking down the stairs and tripped over a shoe at the bottom, causing her to roll her ankle. Pt has been able to bear weight but reports pain, and reports decreased ROM due to pain. Pain is worse to inner aspect of the foot and ankle. Has used ice and wrapped with CHETNA. Denies deformity, numbness, tingling or weakness. Related Data Home Medications Medication Instructions Recorded Confirmed multivitamin 1 tablet PO DAILY 09/23/22 09/26/22 Allergies Allergy/AdvReac Type Severity Reaction Status Date / Time ampicillin Allergy Mild Unknown Verified 09/26/22 08:32 Penicillins Allergy Mild Unknown Verified 09/26/22 08:32 Phenothiazines AdvReac Severe Anaphylactic Verified 09/26/22 08:32 Shock Review of Systems Review of Systems: CONSTITUTIONAL: Denies body aches, fever, chills CARDIOVASCULAR: Denies chest pain, palpitations, or edema. RESPIRATORY: Denies cough or dyspnea. SKIN: Denies rash, itching, or wounds. MUSCULOSKELETAL: Reports left foot pain Denies back pain, or myalgia. NEUROLOGIC: Denies headache, numbness, tingling, or weakness. All systems reviewed & are unremarkable except as noted in HPI and below PMFSH Past Medical History Medical History Abnormal glucose tolerance in Blood glucose abnormal Labial skin tag Suppression of menstruation Surgical History Surgical History Delivery by section (10/10/04) primary c/s unfavorable cervix, nonreassuring status Delivery by section (11/04/05) rpt c/s Delivery by section (04/24/22) rpt c/s H/O tubal ligation (04/24/22) History of gynecological procedure (01/04/06) iud insertion History of hysteroscopy (05/08/16) Hscope removal of Foreign body retained IUD History of hysteroscopy (11/20/10) hysteroscopic intrauterine device removal , insertion of mirena IUD Social History Social History Smoking status: Never smoker Second hand tobacco smoke exposure: No Alcohol intake: never Substance use: never Substance use type: does not use Lack of Transportation: No Lack of Food: Never True Current Housing: I Have Housing Concerned About Future Housing: No Difficulty Paying Gas/Electric Bills: No Difficulty Paying for Meds: No Currently Unemployed: No Education: Trade/Vocational Certificate Difficulty w/ Childcare or Family Care: No Living arrangements: other Additional living arrangements comments: Occupation/Education: occupation Additional occupation/education comments: practical nurse Gender identity (if verbalized by the patient): Female Sexual Orientation (if Verbalized by the Patient): Straight or Heterosexual Spiritual care concerns: No Comments At time of signature, I have reviewed and agree with nursing past medical, surgical, social and family history unless otherwise noted. Please see nursing chart for further information. There is no relevant family history pertinent to the presenting complaint Exam Narrative: GENERAL: Well-appearing CHEST: Speaks in full sentences. No respiratory distress. HEART: Regular rate and rhythm. Normal and equal peripheral pulses. EXTREMITIES: Mild left medial foot/ankle swelling, limited range of motion at ankle, endorses pain with movement. Foot has normal strength and sensation, No ecchymosis, No point tenderness. No open wounds, or obvious deformity; alignment normal, pulse palpable and
== END 2023-02-21 11:03 | disposition home or self-care (01) ==
PROVIDERS: Emergency Provider Nurse Practitioner Family
DX: S93.402A Sprain of unspecified ligament of left ankle, initial encounter (principal); S96.912A Strain of unspecified muscle and tendon at ankle and foot level, left foot, initial encounter; X50.9XXA Other and unspecified overexertion or strenuous movements or postures, initial encounter
CPT/HCPCS: 73610; 99213; G0463